=== PATIENT | female | born 1985 | race African-American/Black ===

== ENCOUNTER 2017-09-25 08:39 | Emergency (ER) | payer SELFPAY ==
[2017-09-25 09:00] VITALS: BP 111/73
[2017-09-25 09:33] LABS: BASOPHILS % 1.1 (0.0-1.5); EOSINOPHILS % 2.6 % (0.0-6.8); MEAN CORPUSCULAR HEMOGLOBIN 31.8 pg (28.0-34.0); MEAN CORPUSCULAR VOLUME 96.3 fl (80.0-100.0); MONOCYTES % 12.7 % (0.0-11.0); NEUTROPHILS # 2.8 # k/uL (1.4-7.7)
[2017-09-25 10:01] LABS: eGFR (African) > 60; eGFR (Non-African) > 60
--- NOTE | 2017-09-25 10:15 | ED Physician Documentation ---
General Adult - HISTORIAN Historian: patient - HPI Stated Complaint: Lumps under skin to Lt FA Chief Complaint: General Adult Further Comments: yes (32 year old female patient presents with complaint of "lumps under my skin". Complains of pain in left elbow; worse with flexion and extension, c/o chills, c/o warmth in elbow. [facility], states she has her medications and has been taking it. Denies injury , denies fall.) - ROS CONST: no problems EYES/ENT: none CVS/RESP: none GI/: none MS/SKIN/LYMPH: none NEURO/PSYCH: denies: headache - PAST HX Past History: other (PTSD, seizures) Surgeries/Procedures: none Allergies/Adverse Reactions: Allergies Allergy/AdvReac Type Severity Reaction Status Date / Time aspirin Allergy Verified 09/25/17 09:01 'cillins Allergy Uncoded 09/25/17 09:01 Home Medications: Ambulatory Orders Medication Instructions Recorded Divalproex Sodium [Depakote] 09/25/17 Divalproex Sodium [Divalproex 500 mg PO BID 09/25/17 Sodium ER] Prazosin HCl [Minipress] 3 mg PO HS 09/25/17 Risperidone [Risperdal] 09/25/17 Sertraline HCl [Zoloft] 150 mg PO HS 09/25/17 Sulfamethoxazole/Trimethoprim 1 each PO BID #14 tab 09/25/17 [Bactrim Ds] - SOCIAL HX Smoking History: cigarettes - FAMILY HX Family History: No - VITAL SIGNS Vital Signs: Vital Signs Temp Pulse Resp BP Pulse Ox 98 F 78 16 111/73 99 09/25/17 08:40 09/25/17 08:40 09/25/17 08:40 09/25/17 08:40 09/25/17 08:40 - REVIEWED ASSESSMENTS Nursing Assessment Reviewed: Yes Vitals Reviewed: Yes ED Results Lab/Radiology - Lab Results Lab Results: Lab Results 09/25/17 09/25/17 09:30 09:30 WBC 6.20 K/ul K/ul (4.00-12.00) RBC 4.31 M/ul M/ul (3.90-5.20) Hgb 13.7 g/dL g/dL (12.0-16.0) Hct 41.6 % % (34.5-46.5) MCV 96.3 fl fl (80.0-100.0) MCH 31.8 pg pg (28.0-34.0) MCHC 33.0 g/dL g/dL (30.0-36.0) RDW 13.2 % % (11.3-14.3) Plt Count 258 K/mm3 K/mm3 (130-400) Neut % (Auto) 45.1 % % (39.0-79.0) Lymph % (Auto) 34.1 % % (16.0-50.0) [place] % (Auto) 12.7 % H % (0.0-11.0) Eos % (Auto) 2.6 % % (0.0-6.8) Baso % (Auto) 1.1 (0.0-1.5) Neut # (Auto) 2.8 # k/uL # k/uL (1.4-7.7) Lymph # (Auto) 2.1 # k/uL # k/uL (0.6-4.0) [place] # (Auto) 0.8 # k/uL # k/uL (0.0-0.9) Eos # (Auto) 0.2 # k/uL # k/uL (0.0-0.6) Baso # (Auto) 0.1 # k/uL # k/uL (0.0-0.5) Reactive Lymphs % 4.3 % % (0.0-5.0) Reactive Lymphs # 0.3 # k/uL # k/uL (0.0-0.8) Sodium 142 mmol/L mmol/L (136-145) Potassium 4.2 mmol/L mmol/L (3.5-5.1) Chloride 109 mmol/L H mmol/L (98-107) Carbon Dioxide 21 mmol/L L mmol/L (22-30) BUN 7 mg/dL mg/dL (7-17) Creatinine 0.70 mg/dL mg/dL (0.52-1.04) Estimated Creat Clear 181 Est GFR ( Amer) > 60 (60 - ) Est GFR (Non-Af Amer) > 60 (60 - ) Glucose 85 mg/dL mg/dL (74-106) Calcium 8.9 mg/dL mg/dL (8.4-10.2) Total Bilirubin 0.6 mg/dL mg/dL (0.2-1.3) AST 69 U/L H U/L (15-46) ALT 58 U/L U/L (13-69) Alkaline Phosphatase 85 U/L U/L (38-126) Total Protein 8.1 g/dL g/dL (6.3-8.2) Albumin 4.0 g/dL g/dL (3.5-5.0) - Orders Orders: ED Orders Category Date Time Status CBC/PLATELET/DIFF Stat Lab 09/25/17 09:30 Completed CMP Stat Lab 09/25/17 09:30 Completed General Adult Physical Exam - PHYSICAL EXAM GENERAL APPEARANCE: [id number] N EENT: eye inspection normal, KISHA RESPIRATORY: no resp distress, chest non-tender, breath sounds normal CVS: reg rate & rhythm, heart sounds normal, equal pulses, no murmur, no gallop , PMI nml, no JVD, no friction rub, 24 SKIN: warm/dry, normal color, other (left elbow with 2 cm x 4 cm raised area, warm to touch; tender to palpation; no drainage. 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 You may use Tylenol or ibuprofen as needed for pain Follow up with one of the providers on the attached list if your symptoms become worse. Condition: Stable Disposition: 01 HOME, SELF-CARE Decision to Admit: NO Decision Time: 10:12
== END 2017-09-25 10:15 | disposition home or self-care (01) ==
LOC: ED 08:39 → EDBD 08:39 → ED 10:15
DX: L03.114 Cellulitis of left upper limb (principal)
CPT/HCPCS: 80053; 85025; 99283

== ENCOUNTER 2017-09-27 13:20 | Emergency (ER) | payer SELFPAY ==
--- NOTE | 2017-09-27 13:35 | ED Physician Documentation ---
General Adult - HISTORIAN Historian: patient - HPI Chief Complaint: Upper Extremity Problem Onset: days ago Timing: still present - ROS CONST: no problems. denies: fever, sweating GI/: nausea. denies: vomiting, diarrhea, black stools NEURO/PSYCH: headache - PAST HX Past History: other (drug buse) Surgeries/Procedures: other (umbilical hernia repair) Immunizations: referred to PCP Allergies/Adverse Reactions: Allergies Allergy/AdvReac Type Severity Reaction Status Date / Time aspirin Allergy Verified 09/27/17 13:36 'cillins Allergy Uncoded 09/27/17 13:36 Home Medications: Ambulatory Orders Medication Instructions Recorded Divalproex Sodium [Depakote] 125 mg 09/25/17 Divalproex Sodium [Divalproex 500 mg PO BID 09/25/17 Sodium ER] Prazosin HCl [Minipress] 3 mg PO HS 09/25/17 Risperidone [Risperdal] 1 mg 09/25/17 Sertraline HCl [Zoloft] 150 mg PO HS 09/25/17 Sulfamethoxazole/Trimethoprim 1 each PO BID #14 tab 09/25/17 [Bactrim Ds] - SOCIAL HX Smoking History: less than 1 pack/day (1/3 ppd) Alcohol Use: none Drug Use: none - FAMILY HX Family History: Yes (mother DM, HTN, father HTN) - VITAL SIGNS Vital Signs: Vital Signs Temp Pulse Resp BP Pulse Ox 111/73 09/25/17 10:41 Progress - Results/Orders Results/Orders: 14:38 Statesthat she can take Aleve without difficulties. Is feeling some better. General Adult Physical Exam - PHYSICAL EXAM GENERAL APPEARANCE: mild distress EENT: ENT inspection normal NECK: normal inspection, thyroid normal, supple. No: lymphadenopathy, stiff neck RESPIRATORY: no resp distress, chest non-tender, breath sounds normal. No: wheezes, rales, rhonchi CVS: reg rate & rhythm, heart sounds normal, equal pulses, no murmur, no gallop ABDOMEN: soft, no organomegaly, normal bowel sounds, no abdominal bruit, no distension SKIN: warm/dry, normal color, other (small moveable nodule to the left flex surface of the forearm, 3mm in diameter. ) EXTREMITIES: normal range of motion, other (Ptients exam is inconsistent. Complains of pain with downward and upward rotation at 90 abd. No pain with external rotation. At times tenderness over left elbow, no bony abnl noted. ) NEURO: oriented X3, mood/affect nml, cognition normal Discharge Clincal Impression: Left arm pain Referrals: Primary Doctor,Saloni [Primary Care Provider] - 2 Days Additional Instructions: Continue taking the antibiotic that you have been prescribed. You will need to fing a primary care provider if you continue to have problems to continue with your workup and evaluation. Try using a warm compress ot the shoulder and elbow area. Take some Aleve 220mgtablets, two tablets twice a day with food for the next one week. Condition: Stable Disposition: 01 HOME, SELF-CARE Decision to Admit: NO Date of Decison to Admit: 09/27/17 Decision Time: 13:54
[2017-09-27 14:07] LABS: BASOPHILS % 0.9 (0.0-1.5); EOSINOPHILS % 2.5 % (0.0-6.8); MEAN CORPUSCULAR HEMOGLOBIN 31.7 pg (28.0-34.0); MEAN CORPUSCULAR VOLUME 95.8 fl (80.0-100.0); MONOCYTES % 8.6 % (0.0-11.0)
[2017-09-27 15:11] VITALS: BP 110/70
== END 2017-09-27 14:59 | disposition home or self-care (01) ==
LOC: ED 13:20
DX: M79.602 Pain in left arm (principal)
CPT/HCPCS: 82550; 85025; 85651; 99283

== ENCOUNTER 2017-10-07 09:15 | Emergency (ER) | payer SELFPAY ==
--- NOTE | 2017-10-07 09:20 | ED Physician Documentation ---
Seizure - HISTORIAN Historian: patient - HPI Stated Complaint: possible seizure Chief Complaint: Seizure Timing/Onset/Duration: unknown duration, single episode Last known Well Date: 10/07/17 Last Known Well Time: 08:00 Last known Well Code/Unknown Code: Unknown Witnessed By: bystander Preceding Symptoms: recent illness (cough and sore throat ), other (after nurses in room pt does report head pain on posterior head . ). denies: fever, chills, recent alcohol intake (denies ), recent drug use (denies ), missed seizure meds (her pill bottles are empty however she states they are in a pill case at her home ) Character of Seizure(s): "shaking all over", other (vomiting and anxious was yelling during incident per bystanders ). denies: lost consciousness, unresponsiveness, shaking in one area, incontinence of urine, incontinence of stool, stopped breathing Postictal Symptoms: none Location of Injury: none Further Comments: yes (She reports she was just released from [facility]. She has not had her AM medications. She is tired and she has a cough that is productive per her report. No OTC meds. No fever.) - ROS NEURO/PSYCH: denies: headache, fainting, dizziness EYES/ENT: none CVS/RESP: cough GI/: denies: adominal pain, nausea, vomiting MS/SKIN/LYMPH: denies: rash - PAST HX Previous seizure/seizure disorder: frequent (per her report - not able to recall numbers. ) Other History: none Surgeries/Procedures: none Immunizations: referred to PCP Allergies/Adverse Reactions: Allergies Allergy/AdvReac Type Severity Reaction Status Date / Time aspirin Allergy Verified 10/07/17 09:33 'cillins Allergy Uncoded 10/07/17 09:33 Home Medications: Ambulatory Orders Medication Instructions Recorded Divalproex Sodium [Divalproex 500 mg PO BID 09/25/17 Sodium ER] Prazosin HCl [Minipress] 3 mg PO HS 09/25/17 Risperidone [Risperdal] 1 mg 09/25/17 Sertraline HCl [Zoloft] 150 mg PO HS 09/25/17 - SOCIAL HX Smoking History: cigarettes Alcohol Use: none Drug Use: heroin (former ) - FAMILY HX Family History: none - VITAL SIGNS Vital Signs: Vital Signs Temp Pulse Resp BP Pulse Ox 98.7 F 89 19 124/76 98 10/07/17 09:15 10/07/17 09:15 10/07/17 09:15 10/07/17 09:15 10/07/17 09:15 - REVIEWED ASSESSMENTS Nursing Assessment Reviewed: Yes Vitals Reviewed: Yes Progress - Progress Progress: 1020: no further vomiting noted. Resting in bed quietly. DG ED Results Lab/Radiology - Lab Results Lab Results: Lab Results 10/07/17 10/07/17 10/07/17 10:15 10:15 09:45 WBC RBC Hgb Hct MCV MCH MCHC RDW Plt Count Neut % (Auto) Lymph % (Auto) [place] % (Auto) Eos % (Auto) Baso % (Auto) Neut # (Auto) Lymph # (Auto) [place] # (Auto) Eos # (Auto) Baso # (Auto) Reactive Lymphs % Reactive Lymphs # Sodium Potassium Chloride Carbon Dioxide BUN Creatinine Estimated Creat Clear Est GFR ( Amer) Est GFR (Non-Af Amer) Glucose Calcium Total Bilirubin AST ALT Alkaline Phosphatase Total Protein Albumin Serum HCG, Qual Negative (NEGATIVE) Urine Color Yellow (YELLOW) Urine Appearance Clear (CLEAR) Urine pH 5.5 (5.0 - 8.0) Ur Specific [place] >=1.030 H (1.010-1.030) Urine Protein Trace mg/dL mg/dL (NEGATIVE) Urine Ketones Trace mg/dL mg/dL (NEGATIVE) Urine Occult Blood Negative (NEGATIVE) Urine Nitrite Negative (NEGATIVE) Urine Bilirubin 1+ H (NEGATIVE) Urine Urobilinogen 1.0 Eu Eu (0.2-1.0) Ur Leukocyte Esterase Negative (NEGATIVE) Urine RBC 0-2 (0-2 HPF) Urine WBC 2-5 (0-5 HPF) Ur Squamous Epith Cells Moderate H (NEG-FEW) Urine Glucose Negative mg/dL mg/dL (NEGATIVE) Opiates Screen Negative ng/mL ng/mL (<300) Oxycodone Screen Negative ng/mL ng/mL (<100) Methadone Screen Negative ng/mL ng/mL (<200) Ur Barbiturates Screen Negative ng.mL ng.mL (<200) Tricyclic Antidepress Negative ng/mL ng/mL (<300) Phencyclidine Screen Negative ng/mL ng/mL (< 25) Amphetamines Screen Negative ng/mL ng/mL (<500) U Methamphetamines Scrn Negative ng/mL ng/mL (<500) MDMA Negative ng/mL ng/mL (<500) Benzodiazepines Screen Negative ng/mL ng/mL (<150) Urine Cocaine Screen Negative ng/mL ng/mL (<150) U Cannabinoids Screen Negative ng/mL ng/mL (< 50) 10/07/17 10/07/17 09:45 09:41 WBC 6.60 K/ul K/ul (4.00-12.00) RBC 4.05 M/ul M/ul (3.90-5.20) Hgb 12.7 g/dL g/dL (12.0-16.0) Hct 38.4 % % (34.5-46.5) MCV 94.8 fl fl (80.0-100.0) MCH 31.3 pg pg (28.0-34.0) MCHC 33.0 g/dL g/dL (30.0-36.0) RDW 13.3 % % (11.3-14.3) Plt Count 285 K/mm3 K/mm3 (130-400) Neut % (Auto) 48.5 % % (39.0-79.0) Lymph % (Auto) 35.0 % % (16.0-50.0) [place] % (Auto) 8.9 % % (0.0-11.0) Eos % (Auto) 3.3 % % (0.0-6.8) Baso % (Auto) 1.0 (0.0-1.5) Neut # (Auto) 3.2 # k/uL # k/uL (1.4-7.7) Lymph # (Auto) 2.3 # k/uL # k/uL (0.6-4.0) [place] # (Auto) 0.6 # k/uL # k/uL (0.0-0.9) Eos # (Auto) 0.2 # k/uL # k/uL (0.0-0.6) Baso # (Auto) 0.1 # k/uL # k/uL (0.0-0.5) Reactive Lymphs % 3.2 % % (0.0-5.0) Reactive Lymphs # 0.2 # k/uL # k/uL (0.0-0.8) Sodium 140 mmol/L mmol/L (136-145) Potassium 4.0 mmol/L mmol/L (3.5-5.1) Chloride 106 mmol/L mmol/L (98-107) Carbon Dioxide 23 mmol/L mmol/L (22-30) BUN 11 mg/dL mg/dL (7-17) Creatinine 0.70 mg/dL mg/dL (0.52-1.04) Estimated Creat Clear 114 Est GFR ( Amer) > 60 (60 - ) Est GFR (Non-Af Amer) > 60 (60 - ) Glucose 117 mg/dL H mg/dL (74-106) Calcium 9.0 mg/dL mg/dL (8.4-10.2) Total Bilirubin 0.6 mg/dL mg/dL (0.2-1.3) AST 74 U/L H U/L (15-46) ALT 78 U/L H U/L (13-69) Alkaline Phosphatase 89 U/L U/L (38-126) Total Protein 7.5 g/dL g/dL (6.3-8.2) Albumin 3.7 g/dL g/dL (3.5-5.0) Serum HCG, Qual Urine Color Urine Appearance Urine pH Ur Specific [place] Urine Protein Urine Ketones Urine Occult Blood Urine Nitrite Urine Bilirubin Urine Urobilinogen Ur Leukocyte Esterase Urine RBC Urine WBC Ur Squamous Epith Cells Urine Glucose Opiates Screen Oxycodone Screen Methadone Screen Ur Barbiturates Screen Tricyclic Antidepress Phencyclidine Screen Amphetamines Screen U Methamphetamines Scrn MDMA Benzodiazepines Screen Urine Cocaine Screen U Cannabinoids Screen - Radiology Radiology Impressions: Examination: CT head without contrast History: PT C/O NAUSEA AND VOMITTING AND CHEST PAIN X 1 DAY. PT STATES THAT SHE MAY HAVE HAD A SEIZURE. (Hx) Comparison exam: None available Technique: Noncontrast head CT protocol. Findings: Ventricles and sulci are appropriate for patient age. Cerebrocerebellar parenchyma demonstrates normal attenuation. No evidence for parenchymal hemorrhage. No evidence for mass or mass effect. No midline shift. No extra axial fluid collections. Partial visualization of the paranasal sinuses , mastoid air cells, orbits, skull and scalp without gross irregularity. Impression: No acute parenchymal process. No hemorrhage. Electronically signed on Oct 07, 2017 11:22:46 AM CDT by: Josué Boston Examination: PA and lateral chest. History: Evaluate lung pa. Findings: PA lateral chest demonstrate a normal cardiac and mediastinal silhouette. No focal infiltrate. No blunting of the costophrenic margins. Osseous structures are appropriate for age. Impression: No acute pulmonary process. Electronically signed on Oct 07, 2017 11:23:09 AM CDT by: Josué Boston - Orders Orders: ED Orders Category Date Time Status Place IV Lock 1T Care 10/07/17 09:28 Active CHEST 2VIEW [RAD] Stat Exams 10/07/[address] BRAIN W/O CONTRAST Stat Exams 10/07/17 Ordered CBC/PLATELET/DIFF Routine Lab 10/07/17 09:45 Completed CMP Routine Lab 10/07/17 09:41 Completed DRUG SCREEN URINE MEDICAL ONLY Routine Lab 10/07/17 10:15 Completed SERUM HCG Stat Lab 10/07/17 09:45 Completed UA W/MICRO IF INDICATED Routine Lab 10/07/17 10:15 Completed 0.9 % Sodium Chloride [Normal Saline] 1,000 ml Med 10/07/17 09:46 Discontinued IV Q1H Ondansetron HCl/Pf [Zofran 4 mg/2 ml] Med 10/07/17 09:38 Discontinued 4 mg .ROUTE .STK-MED ONE Ondansetron HCl/Pf [Zofran 4 mg/2 ml] Med 10/07/17 09:39 Discontinued 4 mg IVP NOW ONE EKG WITH COMPARISON Stat Ther 10/07/17 Completed Seizure Physical Exam - Physical Exam General Appearance: no acute distress, alert Altered Mental Status Higher Functions: alert, oriented x3, mood/affect nml, abnml respond to command, eyes open EENT: nml eye inspection, PERRL, other (scalp without laceration or areas of injury ) Neck/Back: normal inspection Respiratory: no resp. distress, wheezes CVS: reg rate & rhythm, heart sounds normal, no murmur Abdomen: non-tender, no organomegaly, nml bowel sounds, no distention Skin: warm/dry, normal color Extremities: normal range of motion, non-tender, normal inspection, no pedal edema, no calf tenderness Observed Seizure Activity in ED: focal Discharge Clincal Impression: Seizure Referrals: Primary Doctor,No [Primary Care Provider] - 2 Days Additional Instructions: 1. Take medications as prescribed 2. Follow up with PCP when you can get appt to discuss possible med changes 3. Increase fluids 4. Zofran 4 mg take 1 by mouth every 8 hours as needed for nausea 5. Return to ER for any increase in symptoms Condition: Stable Disposition: 01 HOME, SELF-CARE Decision to Admit: NO Date of Decison to Admit: 10/07/17 Decision Time: 11:32
[2017-10-07] MEDS ORDERED: ONDANSETRON HCL/PF 4 MG/ 2ML VIAL ONE (09:38)
[2017-10-07] MEDS ORDERED: ONDANSETRON HCL/PF 4 MG/ 2ML VIAL IVP ONE (09:39)
[2017-10-07] MEDS ORDERED: 0.9 % SODIUM CHLORIDE 1,000 ML IV ONE (09:46)
[2017-10-07 10:03] LABS: EOSINOPHILS % 3.3 % (0.0-6.8); MEAN CORPUSCULAR HEMOGLOBIN 31.3 pg (28.0-34.0); MEAN CORPUSCULAR VOLUME 94.8 fl (80.0-100.0); MONOCYTES % 8.9 % (0.0-11.0); NEUTROPHILS # 3.2 # k/uL (1.4-7.7)
[2017-10-07 10:29] LABS: APPEARANCE,URINE Clear (CLEAR); COLOR,URINE Yellow (YELLOW); OCCULT BLOOD,URINE Negative (NEGATIVE); PH URINE 5.5 (5.0 - 8.0)
[2017-10-07 10:31] LABS: CANNABINOIDS NEGATIVE ng/mL (< 50); METHYLENEDIOXYMETHAMPHETAMINE NEGATIVE ng/mL (<500)
[2017-10-07 10:36] LABS: eGFR (African) > 60; eGFR (Non-African) > 60
[2017-10-07 11:48] VITALS: BP 109/69
--- NOTE | 2017-10-07 14:42 | Diagnostic Imaging Report ---
YING CABRAL [facility] [address] [facility] [address] [place], [place]. [address] Report Submission Date: Oct 07, 2017 11:23:09 AM CDT Patient Study Name: ROBI ALFONSO Date: Oct 07, 2017 10:41:52 AM CDT Modality Type: DX Gender: F Description: CHEST : 81 Institution: [facility] Physician: YING CABRAL Examination: PA and lateral chest. History: Evaluate lung pa. Findings: PA lateral chest demonstrate a normal cardiac and mediastinal silhouette. No focal infiltrate. No blunting of the costophrenic margins. Osseous structures are appropriate for age. Impression: No acute pulmonary process. Electronically signed on Oct 07, 2017 11:23:09 AM CDT by: Josué ZAPATA
--- NOTE | 2017-10-07 14:52 | Diagnostic Imaging Report ---
YING CABRAL [facility] [address] [facility] [address] [place], [place]. [address] Report Submission Date: Oct 07, 2017 11:22:46 AM CDT Patient Study Name: ROBI ALFONSO Date: Oct 07, 2017 10:37:07 AM CDT Modality Type: CT\SR Gender: F Description: CT BRAIN W/O CONTRAST : 81 Institution: [facility] Physician: YING CABRAL Examination: CT head without contrast History: PT C/O NAUSEA AND VOMITTING AND CHEST PAIN X 1 DAY. PT STATES THAT SHE MAY HAVE HAD A SEIZURE. (Hx) Comparison exam: None available Technique: Noncontrast head CT protocol. Findings: Ventricles and sulci are appropriate for patient age. Cerebrocerebellar parenchyma demonstrates normal attenuation. No evidence for parenchymal hemorrhage. No evidence for mass or mass effect. No midline shift. No extra axial fluid collections. Partial visualization of the paranasal sinuses , mastoid air cells, orbits, skull and scalp without gross irregularity. Impression: No acute parenchymal process. No hemorrhage. Electronically signed on Oct 07, 2017 11:22:46 AM CDT by: Josué ZAPATA
== END 2017-10-07 11:37 | disposition home or self-care (01) ==
LOC: ED 09:15
DX: R56.9 Unspecified convulsions (principal)
CPT/HCPCS: 70450; 71046; 80053; 80377; 81002; 84703; 85025; 93005; J2405; J7030; 96365; 96375; 99283; G0481; S1016

== ENCOUNTER 2017-10-22 20:17 | Emergency (ER) | payer SELFPAY ==
--- NOTE | 2017-10-22 20:22 | ED Physician Documentation ---
General Adult - HISTORIAN Historian: patient - HPI Stated Complaint: sore throat and ear pain with swollen lymph nodes - tested pos for trichomo Chief Complaint: Earache Onset: days ago (3) Timing: still present Severity: moderate Further Comments: yes (She states three days ago she started to notice neck and ear pain. She denies fever . She states she also was told she had Trichomoniasis from a [facility] testing. She does note a vaginal discharge. She reports the health dept did not treat her. She was recently released from care home. She has not tried any OTC meds. She is feeling like the ear pain is increasing. She has nasal drainge and cough. She feels she also has sinus pain and pressure.) Last known Well Code/Unknown Code: Unknown - ROS CONST: denies: fever, recent illness EYES/ENT: sore throat, nasal drainage, nasal congestion CVS/RESP: cough. denies: shortness of breath GI/: denies: abdominal pain, problems urinating, vomiting, nausea MS/SKIN/LYMPH: denies: rash NEURO/PSYCH: denies: headache - PAST HX Past History: other (Seizures ) Surgeries/Procedures: other Immunizations: UTD Allergies/Adverse Reactions: Allergies Allergy/AdvReac Type Severity Reaction Status Date / Time aspirin Allergy Verified 10/22/17 20:35 'cillins Allergy Uncoded 10/22/17 20:35 Home Medications: Ambulatory Orders Medication Instructions Recorded Divalproex Sodium [Divalproex 500 mg PO BID 09/25/17 Sodium ER] Prazosin HCl [Minipress] 3 mg PO HS 09/25/17 Sertraline HCl [Zoloft] 150 mg PO HS 09/25/17 - SOCIAL HX Smoking History: cigarettes Alcohol Use: none Drug Use: none - FAMILY HX Family History: Yes - VITAL SIGNS Vital Signs: Vital Signs Temp Pulse Resp BP Pulse Ox 109/69 10/07/17 11:47 - REVIEWED ASSESSMENTS Nursing Assessment Reviewed: Yes Vitals Reviewed: Yes General Adult Physical Exam - PHYSICAL EXAM GENERAL APPEARANCE: no distress EENT: eye inspection normal, ENT inspection normal, no signs of dehydration, abnormal TM (right ear with redness and swelling in ear canal along with TM distorted and red ), TM erythema, other (posterior pharynx with redness and exudates ) NECK: normal inspection, lymphadenopathy (cervical noted on right side. FROM ) RESPIRATORY: no resp distress, chest non-tender, breath sounds normal CVS: reg rate & rhythm, heart sounds normal, equal pulses, no murmur ABDOMEN: soft, normal bowel sounds SKIN: warm/dry, normal color EXTREMITIES: non-tender, normal range of motion, no evidence of injury, no edema NEURO: oriented X3, CN's nml as tested, motor nml, sensation nml, mood/affect nml, cognition normal Discharge Clincal Impression: Trichomonas infection Otitis Qualifiers: Laterality: right Qualified Code(s): H66.91 - Otitis media, unspecified, right ear Referrals: Primary Doctor,No [Primary Care Provider] - 2 Days Additional Instructions: 1. Azithromycin 250 mg days 2-5 (1st dose received in hospital ) 2. Follow up with health dept tomorrow - treatment for Trichomonas 3. Tylenol or Ibuprofen for pain 4. Ciprodex drops 3 drops in right ear three times per day 5. See PCP in 2-4 days for follow up 6. Return to ER for any increasing concerns 7. SAFE SEX Condition: Stable Disposition: 01 HOME, SELF-CARE Decision to Admit: NO Date of Decison to Admit: 10/22/17 Decision Time: 20:39
[2017-10-22] MEDS ORDERED: AZITHROMYCIN 250 MG TABLET PO ONE (20:41)
[2017-10-22 21:19] VITALS: BP 136/72
== END 2017-10-22 21:12 | disposition home or self-care (01) ==
LOC: ED 20:17
DX: A59.9 Trichomoniasis, unspecified (principal); H66.91 Otitis media, unspecified, right ear
CPT/HCPCS: 99283

== ENCOUNTER 2018-03-12 20:26 | Emergency (ER) | payer SELFPAY ==
[2018-03-12 21:11] VITALS: BP 98/55
[2018-03-12 21:32] LABS: eGFR (Non-African) > 60
[2018-03-12] MEDS ORDERED: ONDANSETRON HCL/PF 4 MG/ 2ML VIAL IVP ONE (21:48)
[2018-03-12] MEDS ORDERED: PROMETHAZINE HCL 25 MG/ML VIAL IM ONE (21:52)
--- NOTE | 2018-03-12 21:55 | ED Physician Documentation ---
General Adult - HISTORIAN Historian: patient - HPI Stated Complaint: Rectal pain Chief Complaint: General Adult Further Comments: yes (32 year old female patient presents with c/o rectal pain and bleeding x 2 days. States she was released from [facility] 2 days ago; denies rectal intercourse or use of anal sex toys. Report pain with BM, c/o bright red bleeding with BMs. Denies dark, tarry stools.) - ROS CONST: no problems EYES/ENT: none CVS/RESP: none GI/: none MS/SKIN/LYMPH: none - PAST HX Past History: other (seizures, Hep C) Surgeries/Procedures: other (umbilical hernia repair) Allergies/Adverse Reactions: Allergies Allergy/AdvReac Type Severity Reaction Status Date / Time aspirin Allergy Verified 03/12/18 21:33 'cillins Allergy Uncoded 03/12/18 21:33 Home Medications: Ambulatory Orders Medication Instructions Recorded Divalproex Sodium [Depakote] 1,000 mg PO BID 03/12/18 - SOCIAL HX Smoking History: cigarettes - FAMILY HX Family History: No - VITAL SIGNS Vital Signs: Vital Signs Temp Pulse Resp BP Pulse Ox 97.9 F 103 H 15 98/55 99 03/12/18 20:36 03/12/18 20:36 03/12/18 20:36 03/12/18 20:36 03/12/18 20:36 - REVIEWED ASSESSMENTS Nursing Assessment Reviewed: Yes Vitals Reviewed: Yes Progress - Progress Progress: Patient vomiting; medicated with promethazine. Patient c/o nausea related to patient next door vomiting and pain from rectal exam. No hemorrhoidal rectal suppository available at [facility]. ED Results Lab/Radiology - Lab Results Lab Results: Lab Results 03/12/18 21:06 Sodium 137 mmol/L mmol/L (136-145) Potassium 3.6 mmol/L mmol/L (3.5-5.1) Chloride 114 mmol/L H mmol/L (98-107) Carbon Dioxide 26 mmol/L mmol/L (22-30) BUN 15 mg/dL mg/dL (7-17) Creatinine 0.80 mg/dL mg/dL (0.52-1.04) Estimated Creat Clear 141 Est GFR ( Amer) > 60 (60 - ) Est GFR (Non-Af Amer) > 60 (60 - ) Glucose 97 mg/dL mg/dL (74-106) Calcium 8.9 mg/dL mg/dL (8.4-10.2) Total Bilirubin < 0.1 mg/dL L mg/dL (0.2-1.3) AST 31 U/L U/L (15-46) ALT 44 U/L U/L (13-69) Alkaline Phosphatase 82 U/L U/L (38-126) Total Protein 8.2 g/dL g/dL (6.3-8.2) Albumin 4.0 g/dL g/dL (3.5-5.0) - Orders Orders: ED Orders Category Date Time Status CBC REF Stat Lab 03/12/18 21:06 Received CBC/PLATELET/DIFF Stat Lab 03/12/18 21:07 Received CMP Stat Lab 03/12/18 21:06 Completed UA W/MICRO IF INDICATED Stat Lab 03/12/18 20:37 Ordered URINE HCG Stat Lab 03/12/18 21:07 Ordered Urine drug screen [DRUG SCREEN URINE MEDICAL ONLY] Stat Lab 03/12/18 21:49 Ordered Ondansetron HCl/Pf [Zofran 4 mg/2 ml] Med 03/12/18 21:48 Stop Req 4 mg IVP NOW ONE Promethazine HCl [Phenergan] Med 03/12/18 21:52 Once 25 mg IM NOW ONE General Adult Physical Exam - PHYSICAL EXAM GENERAL APPEARANCE: mild distress EENT: eye inspection normal, KISHA RESPIRATORY: no resp distress, chest non-tender, breath sounds normal CVS: reg rate & rhythm, heart sounds normal, equal pulses, no murmur, no gallop, PMI nml, no JVD, no friction rub, 24 ABDOMEN: soft, no organomegaly, normal bowel sounds, no abdominal bruit, no distension RECTAL: normal rectal tone, tenderness (patient c/o severe pain with rectal exam; internal hemorrhoid palpable. ) SKIN: normal color, warm/dry, NR, INT, PAL, DR EXTREMITIES: non-tender, normal range of motion, no evidence of injury, no edema, J, BATH MIXER NEURO: oriented X3, CN's nml as tested, motor nml, sensation nml, mood/affect nml Discharge Clincal Impression: Internal hemorrhoid Referrals: Primary Doctor,No [Primary Care Provider] - 2 Days Additional Instructions: Use an over the counter hemorrhoid suppository Start colace (docusate sodium) over the counter - 1 tab daily. Condition: Stable Disposition: 01 HOME, SELF-CARE Decision to Admit: NO Decision Time: 22:37
[2018-03-12 22:31] LABS: BASO % 1.1 % (0.0-1.5); EOS % 2.3 % (0.0-6.8); LYMPH ABS # 4.16 thou/uL (0.60-4.00); MCH. 29.3 pg (28.0-34.0); MCV 92.2 fL (80.0-100.0); MONOCYTE % 9.9 % (0.0-11.0); MONOCYTE ABS # 0.88 thou/uL (0.00-0.90); PLATELET COUNT 262 thou/uL (130-400)
[2018-03-13 16:35] LABS: APPEARANCE,URINE CLEAR (CLEAR); COLOR,URINE AMBER (YELLOW)
[2018-03-13 16:36] LABS: OCCULT BLOOD,URINE NEGATIVE (NEGATIVE); PH URINE 5.5 (5.0 - 8.0); URINE HCG NEGATIVE (NEGATIVE); UROBILINOGEN URINE 0.2 Eu (0.2-1.0)
[2018-03-13 17:52] LABS: CANNABINOIDS NEGATIVE ng/mL (< 50); METHYLENEDIOXYMETHAMPHETAMINE NEGATIVE ng/mL (<500)
== END 2018-03-12 22:45 | disposition home or self-care (01) ==
LOC: ED 20:26
DX: K64.8 Other hemorrhoids (principal)
CPT/HCPCS: 80053; 85025; J2550; 80377; 81002; 81025; 82272; 96372; 99283; G0481